=== PATIENT | male | born 1975 | race Caucasian/White ===

== ENCOUNTER → 2017-01-11 | Outpatient (CLI) | payer OTHER | LOC: HEART CORB 08:52 | DX: R07.2 Precordial pain (principal); R06.02 Shortness of breath | CPT/HCPCS: 78452; A9502; J2785 ==

== ENCOUNTER → 2021-10-27 | Outpatient (CLI) | payer OTHER ==
[~2021-10-27] MED LIST: AUGMENTIN 875-1 EACH PO; MUCINEX DM ER1 EAC1 PO; PROVENTIL HFA6.7 GM INH; TESSALON PERLE100 MG PO; ZOFRAN4 MG PO
== END ==
LOC: HEART CORB 09:00
DX: I10 Essential (primary) hypertension (principal); R60.0 Localized edema; R06.02 Shortness of breath; I08.1 Rheumatic disorders of both mitral and tricuspid valves
CPT/HCPCS: 93306

== ENCOUNTER 2022-05-05 13:29 | Observation (INO) | payer OTHER ==
[~2022-05-05] VITALS: Ht 188 cm; Wt 172.8 kg
[2022-05-05 14:12] LABS: HEMOGLOBIN 13.9 gm/dl (14.0-17.5); RED BLOOD COUNT 4.75 M/UL (4.20-5.50); WHITE BLOOD COUNT 7.4 K/UL (4.5-11.0)
[2022-05-05 14:19] LABS: BUN/CREATININE RATIO 10 (0-10)
[2022-05-06 03:20] LABS: HEMOGLOBIN 13.8 gm/dl (14.0-17.5); RED BLOOD COUNT 4.73 M/UL (4.20-5.50); WHITE BLOOD COUNT 6.9 K/UL (4.5-11.0)
[2022-05-06 03:52] LABS: BUN/CREATININE RATIO 11 (0-10)
[2022-05-06] MEDS ORDERED: BUMETANIDE0.5 MG PO (10:48)
[2022-05-06] MEDS ORDERED: CARVEDILOL25 MG PO (10:49)
[2022-05-06] MEDS ORDERED: GABAPENTIN600 MG PO (10:49)
[2022-05-06] MEDS ORDERED: HYDROCODON-ACE1 EAC6 PO (10:50)
[2022-05-06] MEDS ORDERED: PROAIR HFA8.5 GM INH (10:51)
[2022-05-06] MEDS ORDERED: METHOCARBAMOL500 MG PO (10:51)
[2022-05-06] MEDS ORDERED: POTASSIUM CHLO20 ME2 PO (10:52)
[2022-05-06] MEDS ORDERED: ONDANSETRON ODT4 MG PO (10:52)
[2022-05-06] MEDS ORDERED: VITAMIN B-121000 MCG PO (10:54)
[2022-05-06] MEDS ORDERED: ISOSORBIDE MONO30 MG PO (15:43)
[2022-05-06] MEDS ORDERED: NITROGLYCERIN0.4 MG SL (15:43)
== END 2022-05-06 17:46 | disposition home or self-care (01) ==
LOC: ER1 13:29 → CDU 18:00 → MED SURG 4 18:00
PROVIDERS: Emergency Medicine; Physician Assistant; ADMIT Internal Medicine
DX: R07.89 Other chest pain (principal); I10 Essential (primary) hypertension; K21.9 Gastro-esophageal reflux disease without esophagitis; E66.01 Morbid (severe) obesity due to excess calories; Z68.42 Body mass index [BMI] 45.0-49.9, adult; Z88.6 Allergy status to analgesic agent
CPT/HCPCS: ECHO; 36415; 71045; 71046; 80048; 80053; 80061; 82550; 82553; 83036; 84484; 85025; 93005; 93306; 94664; 94760; 99285; G0378; Q9957